=== PATIENT | male | born 1995 | race Hispanic/Latino ===

== ENCOUNTER 2020-04-15 00:09 | Emergency (ER) | payer SELFPAY ==
--- NOTE | 2020-04-15 07:46 | RAD ---
XR Chest Pa Lat STANDARD History: Chest pain Comparison: Chest pain Findings: Lungs are clear. No pneumothorax or effusion. Cardiac silhouette and mediastinal contours a re within normal limits. No acute osseous abnormality. Impression: No acute intrathoracic abnormality.
--- NOTE | 2020-04-19 13:28 | EKG ---
Test Reason : Blood Pressure : / mmHG Vent. Rate : 081 BPM Atrial Rate : 081 BPM P-R Int : 134 ms QRS Dur : 096 ms QT Int : 340 ms P-R-T Axes : 071 084 015 degrees QTc Int : 394 ms Normal sinus rhythm with sinus arrhythmia Normal ECG Confirmed by FREDERICK NICOLE M.D. ([id number]), map editor MARIIA TSANG ([id number] on 04/19/2020 1:28:21 PM Referred By: Confirmed By:FREDERICK NICOLE M.D.
== END 2020-04-15 01:43 | disposition home or self-care (01) ==
LOC: ERS 00:09
DX: R07.89 Other chest pain (principal)
CPT/HCPCS: 71046; 93005

== ENCOUNTER 2023-02-21 12:03 | Emergency (ER) | payer SELFPAY | END 2023-02-21 16:15 | disposition home or self-care (01) | LOC: ERS 12:03 | DX: T23.201A Burn of second degree of right hand, unspecified site, initial encounter (principal); X10.2XXA Contact with fats and cooking oils, initial encounter | CPT/HCPCS: 99283 ==